=== PATIENT | male | born 1940 | race Caucasian/White ===

== ENCOUNTER 2021-11-25 16:39 | Inpatient (IN) ==
[2021-11-25] MEDS ORDERED: Ondansetron ODT 4 MG TAB.RAPDIS SL PRN (20:01)
[2021-11-25] MEDS ORDERED: Naloxone 0.4 MG/ML INJ IVP PRN (20:01)
[2021-11-25] MEDS ORDERED: Melatonin 3 MG TABLET PO PRN (20:01)
[2021-11-25] MEDS ORDERED: Gabapentin 100 MG CAPSULE PO SCH (21:00)
[2021-11-25] MEDS ORDERED: Famotidine 20 MG/2 ML VIAL IVP ONE (21:06)
[2021-11-25] MEDS ORDERED: Acetaminophen IV 1,000 MG/100 ML BAG IVPB ONE (21:06)
[2021-11-25] MEDS ORDERED: 0.9 % Sodium Chloride 1,000 ML IVC SCH (21:15)
[2021-11-25 22:02] LABS: Bacteria,Urine Moderate per hpf (None-Few); Bilirubin,Urine Negative (Negative); Blood,Urine Small (Negative); Clarity,Urine Turbid (Clear); Color,Urine Yellow (Yellow); Glucose,Urine (UA) 500 mg/dL (Normal); Ketones,Urine Trace mg/dL (Negative); Leukocyte Esterase,Urine Large (Negative); Mucus,Urine Few per lpf (None-Few); Nitrite,Urine Negative (Negative); PH,Urine 6.5 pH Units (5.0-8.0); Protein,Urine 200 mg/dL (Neg-Trace); Specific Gravity,Urine 1.022 (1.010-1.025); WBC,Urine TNTC per hpf (0-3)
[2021-11-25] MEDS ORDERED: *HR* FentaNYL (PF) 100 MCG/2 ML VIAL ONE (22:15)
[2021-11-25] MEDS ORDERED: Lidocaine -MPF 2% 2 ML VIAL ONE (22:15)
[2021-11-25] MEDS ORDERED: Ondansetron 4 MG/2 ML VIAL ONE (22:15)
[2021-11-25] MEDS ORDERED: *HR* Propofol 200 MG/20 ML VIAL IVP ONE (22:15)
[2021-11-25] MEDS ORDERED: Isovue-300 50ML VIAL ONE (22:36)
[2021-11-25] MEDS ORDERED: ceFAZolin 2,000 MG in Water for inj. (sterile) 20 ML IVP ONE (23:18)
[2021-11-26 00:10] LABS: Bacteria,Urine Few per hpf (None-Few); Bilirubin,Urine Negative (Negative); Blood,Urine Large (Negative); Clarity,Urine Ex.Turbid (Clear); Color,Urine Light-Orange (Yellow); Glucose,Urine (UA) Normal (Normal); Ketones,Urine Negative (Negative); Leukocyte Esterase,Urine Large (Negative); Mucus,Urine Few per lpf (None-Few); Nitrite,Urine Negative (Negative); PH,Urine 7.5 pH Units (5.0-8.0); Protein,Urine >=300 mg/dL (Neg-Trace); RBC,Urine 50-100 per hpf (0-3); Specific Gravity,Urine 1.013 (1.010-1.025); Urobilinogen,Urine Normal (Normal); WBC,Urine TNTC per hpf (0-3)
[2021-11-26] MEDS ORDERED: Naloxone 0.4 MG/ML INJ IVP PRN (01:22)
[2021-11-26] MEDS ORDERED: 0.9 % Sodium Chloride 1,000 ML IVC SCH (01:22)
[2021-11-26] MEDS ORDERED: Ondansetron ODT 4 MG TAB.RAPDIS SL PRN (01:22)
[2021-11-26] MEDS ORDERED: Melatonin 3 MG TABLET PO PRN (01:22)
[2021-11-26 02:57] LABS: Basophils % 0.1 %; Hemoglobin 13.1 g/dL (12.9-16.9); Immature Granulocytes % 0.8 % (0-4); Lymphocytes # 0.3 K/mcL (0.6-4.6); Lymphocytes % 2.3 %; Mean Corpuscular HGB Conc 34.5 g/dL (31.6-35.5); Mean Corpuscular Hemoglobin 30.8 pg (28.0-33.3); Mean Corpuscular Volume 89.4 fL (83.0-100.0); Mean Platelet Volume 9.8 fL (9.4-12.4); Monocytes # 0.4 K/mcL (0.0-1.3); Monocytes % 3.2 %; Neutrophils # 12.5 K/mcL (1.6-8.9); Platelet Count 171 K/mcL (140-400); Red Blood Count 4.25 M/mcL (4.19-5.50); Red Cell Distribution Width 12.5 % (11.5-14.5); Segmented Neutrophils % 93.6 %; White Blood Count 13.3 K/mcL (4.3-11.1)
[2021-11-26 03:18] LABS: Albumin 3.1 g/dL (3.5-5.7); Bilirubin,Total 0.4 mg/dL (0.3-1.0); Calcium 8.5 mg/dL (8.6-10.3); Globulin 3.1 g/dL (2.4-3.5); Magnesium 2.1 mg/dL (1.6-2.6); Phosphorous 2.1 mg/dL (2.7-4.5); Potassium 4.3 mEq/L (3.5-5.1); Total Protein 6.2 g/dL (6.4-8.9)
[2021-11-26] MEDS: Gabapentin 100 MG CAPSULE PO SCH ×2 (08:55→20:26)
[2021-11-26] MEDS: cefTRIAXone 2,000 MG in 0.9 % Sodium Chloride 20 ML IVP SCH (08:55)
[2021-11-26] MEDS: amLODIPine 5 MG TABLET PO SCH (08:55)
[2021-11-26] MEDS ORDERED: amLODIPine 5 MG TABLET PO SCH (09:00)
[2021-11-26] MEDS ORDERED: cefTRIAXone 2,000 MG in 0.9 % Sodium Chloride 20 ML IVP SCH (09:00)
[2021-11-27 03:52] LABS: Hematocrit 43.1 % (37.5-50.1); Mean Corpuscular HGB Conc 34.8 g/dL (31.6-35.5); Mean Corpuscular Hemoglobin 30.7 pg (28.0-33.3); Mean Corpuscular Volume 88.1 fL (83.0-100.0); Mean Platelet Volume 9.8 fL (9.4-12.4); Platelet Count 242 K/mcL (140-400); Red Blood Count 4.89 M/mcL (4.19-5.50); Red Cell Distribution Width 12.3 % (11.5-14.5); White Blood Count 10.9 K/mcL (4.3-11.1)
[2021-11-27 04:10] LABS: BUN/Creatinine Ratio 24 (6-26); Blood Urea Nitrogen 29 mg/dL (8-23); Calcium 8.8 mg/dL (8.6-10.3); Carbon Dioxide 24 mEq/L (23-29); Chloride 103 mEq/L (98-107); Glucose 116 mg/dL (70-105); Osmolality,Calculated 285 (280-300); Potassium 3.8 mEq/L (3.5-5.1); Sodium 134 mEq/L (136-145); eGFR For African Americans > 60 (> 60); eGFR For Non-African Americans 58 (> 60)
[2021-11-27] MEDS ORDERED: *HR* Labetalol 20 MG/4 ML SYRINGE IVP ONE (05:12)
[2021-11-27] MEDS: Gabapentin 100 MG CAPSULE PO SCH ×2 (07:42→19:58)
[2021-11-27] MEDS: cefTRIAXone 2,000 MG in 0.9 % Sodium Chloride 20 ML IVP SCH (07:42)
[2021-11-27] MEDS: amLODIPine 5 MG TABLET PO SCH ×2 (07:42→10:31)
[2021-11-27] MEDS: lisinopriL 20 MG TABLET PO SCH (10:33)
[2021-11-27] MEDS ORDERED: Metoprolol XL (24 HR) Succ 50 MG TAB.ER.24H PO ONE (14:08)
[2021-11-27] MEDS ORDERED: Gabapentin 100 MG CAPSULE PO SCH (21:00)
[2021-11-28 03:09] LABS: Hematocrit 44.1 % (37.5-50.1); Mean Corpuscular Hemoglobin 30.5 pg (28.0-33.3); Mean Corpuscular Volume 89.6 fL (83.0-100.0); Mean Platelet Volume 9.7 fL (9.4-12.4); Platelet Count 249 K/mcL (140-400); Red Blood Count 4.92 M/mcL (4.19-5.50); Red Cell Distribution Width 12.7 % (11.5-14.5); White Blood Count 10.1 K/mcL (4.3-11.1)
[2021-11-28 03:32] LABS: BUN/Creatinine Ratio 23 (6-26); Blood Urea Nitrogen 27 mg/dL (8-23); Calcium 9.1 mg/dL (8.6-10.3); Carbon Dioxide 28 mEq/L (23-29); Chloride 102 mEq/L (98-107); Glucose 91 mg/dL (70-105); Osmolality,Calculated 287 (280-300); Potassium 4.2 mEq/L (3.5-5.1); Sodium 136 mEq/L (136-145); eGFR For African Americans > 60 (> 60); eGFR For Non-African Americans > 60 (> 60)
[2021-11-28] MEDS: Metoprolol XL (24 HR) Succ 50 MG TAB.ER.24H PO SCH (07:43)
[2021-11-28] MEDS: cefTRIAXone 2,000 MG in 0.9 % Sodium Chloride 20 ML IVP SCH (07:43)
[2021-11-28] MEDS: lisinopriL 20 MG TABLET PO SCH (07:43)
[2021-11-28] MEDS: amLODIPine 5 MG TABLET PO SCH (07:43)
[2021-11-28] MEDS: Gabapentin 100 MG CAPSULE PO SCH (20:04)
[2021-11-29 03:25] LABS: Hematocrit 40.4 % (37.5-50.1); Mean Corpuscular HGB Conc 34.7 g/dL (31.6-35.5); Mean Corpuscular Volume 89.4 fL (83.0-100.0); Mean Platelet Volume 9.8 fL (9.4-12.4); Platelet Count 222 K/mcL (140-400); Red Blood Count 4.52 M/mcL (4.19-5.50); Red Cell Distribution Width 12.6 % (11.5-14.5); White Blood Count 9.7 K/mcL (4.3-11.1)
[2021-11-29 03:54] LABS: BUN/Creatinine Ratio 23 (6-26); Blood Urea Nitrogen 27 mg/dL (8-23); Carbon Dioxide 26 mEq/L (23-29); Chloride 102 mEq/L (98-107); Glucose 92 mg/dL (70-105); Osmolality,Calculated 287 (280-300); Potassium 4.1 mEq/L (3.5-5.1); Sodium 136 mEq/L (136-145); eGFR For African Americans > 60 (> 60); eGFR For Non-African Americans 60 (> 60)
[2021-11-29] MEDS: cefTRIAXone 2,000 MG in 0.9 % Sodium Chloride 20 ML IVP SCH (08:12)
[2021-11-29] MEDS: lisinopriL 20 MG TABLET PO SCH (08:14)
[2021-11-29] MEDS: Metoprolol XL (24 HR) Succ 50 MG TAB.ER.24H PO SCH (08:15)
[2021-11-29] MEDS: amLODIPine 5 MG TABLET PO SCH (08:15)
[2021-11-29] MEDS ORDERED: Finasteride 5 MG TABLET PO SCH (09:00)
[2021-11-29 10:28] VITALS: BP 123/66; PULSE 82; TEMP 97.8; O2SAT 94
== END 2021-11-29 11:28 | disposition home or self-care (01) | DRG 854 ==
LOC: 3ANU → SUATTDRO 20:01
PROVIDERS: ADMIT Internal Medicine; ATTEND Family Medicine